=== PATIENT | female | born 1995 | race Caucasian/White ===

== ENCOUNTER → 2018-09-07 | Outpatient (CLI) | payer OTHER ==
[2018-09-07 11:23] LABS: EOS % 0.8 % (1.0-5.0); HEMATOCRIT 42.7 % (37.0-47.0); HEMOGLOBIN 14.3 g/dL (12.5-16.0); LYMPH# 1.7 (1.50-4.00); MEAN CELL VOLUME 88 fl (78-100); MEAN CORPUSCULAR HEMOGLOBIN 30 pg (27-31); MEAN CORPUSCULAR HGB CONC 34 g/dL (33-37); MONO # 0.4 (0.20-0.80); NEU # 1.8 (1.40-6.50); PLATELET COUNT 249 K/mm3 (130-400); RED BLOOD COUNT 4.84 M/mm3 (4.10-5.30); RED CELL DISTRIBUTION WIDTH 12.2 % (11.5-14.5); WHITE BLOOD COUNT 3.9 K/mm3 (4.8-10.8)
[2018-09-07 12:44] LABS: ALBUMIN 4.7 g/dL (3.5-5.0); POTASSIUM 3.6 mmol/L (3.5-5.1)
[2018-09-07 12:45] LABS: CALCIUM 9.6 mg/dL (8.3-10.5)
[2018-09-07 12:46] LABS: TOTAL PROTEIN 7.4 g/dL (6.4-8.3)
[2018-09-07 12:48] LABS: TOTAL BILIRUBIN 0.5 mg/dL (0.2-1.2)
== END ==
LOC: LAB 11:11
PROVIDERS: Family Medicine
DX: Z01.419 Encounter for gynecological examination (general) (routine) without abnormal findings (principal); Z13.220 Encounter for screening for lipoid disorders; R53.83 Other fatigue

== ENCOUNTER → 2019-04-01 | Outpatient (CLI) | payer OTHER | LOC: LAB 12:21 | DX: Z32.01 Encounter for pregnancy test, result positive (principal) ==